=== PATIENT | female | born 2005 | race Caucasian/White ===

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

== ENCOUNTER 2025-07-09 13:42 | Outpatient (CLI) | payer OTHER, SELFPAY | END 2025-07-09 13:43 | disposition home or self-care (01) | LOC: NFLDREF 07-27 08:53 | PROVIDERS: Visit Provider Physician Assistant | DX: N39.0 Urinary tract infection, site not specified (principal) | CPT/HCPCS: 87086 ==

== ENCOUNTER 2025-07-26 02:05 | Emergency (ER) | payer OTHER, SELFPAY ==
[2025-07-26] VITALS (12 sets, daily range): BP systolic 96–148; BP diastolic 59–72; PULSE 95–126; RESP 16; TEMP 37.8–38; O2SAT 96–99; BMI 15.9
[2025-07-26 02:18] LABS: Appearance Urine Clear (Clear)
--- NOTE | 2025-07-26 02:18 | ED.FEMALEGU ---
HPI - Female Genitourinary General Time Seen by Provider: 02:18 Date Seen: 07/26/25 Chief complaint: Urogenital Problems, Female Stated complaint: fever, kidney infection Time Seen by Provider: 07/26/25 02:15 Source: patient Mode of arrival: ambulatory History of Present Illness HPI Narrative: Ирина is a 20 yo female who presents to the emergency department for evaluation of fever. Patient reports that she has been having urinary tract in symptoms for the past 1 month and has been multiple rounds of antibiotics. Patient states that she initially developed some urinary tract symptoms approximately 1 month ago and at that point she took 2 days of fosfomycin she had at home. Patient states that symptoms improved however about a week later symptoms return. At that point she was treated with a 7 day course of Augmentin. Then later took a 5 day course of Macrobid, a 7 day course of Keflex, and most recently is on Bactrim. Patient reports she has taken 7 days of Bactrim and has 3 days left. Patient reports that tonight approximately 1 hour prior to arrival she developed a rash on her body. Patient also complains of generalized fatigue, fever, chills, as well as some rhinorrhea, cough. Reports improvement of her urinary symptoms however still on occasion does have some kidney discomfort along with some nausea. Patient last took Tylenol around 2:00 p.m. yesterday. Patient also reports concern that she may have a yeast infection given all of her antibiotics. Patient denies any other abdominal pain reports. Related Data Home Medications ?Medication ?Instructions ?Recorded ?Confirmed drospirenone 3 mg-ethinyl 1 tab PO QDAY 07/09/25 07/26/25 estradiol 0.02 mg tablet (BENNETT (28)) Previous Rx's ?Medication ?Instructions ?Recorded cefpodoxime 200 mg tablet 200 mg PO BID 9 days #18 tabs 07/26/25 Allergies Allergy/AdvReac Type Severity Reaction Status Date / Time No Known Drug Allergies Allergy Verified 07/26/25 02:16 Review of Systems Narrative: Past medical history, past surgical history, medications, allergies, family history, and social history were reviewed with the patient. No additional pertinent items. A medically appropriate review of systems was performed with pertinent positives and negatives noted in HPI, all other systems negative. [facility] PFS Social History Smoking Status: Never smoker How often do you have a drink containing alcohol: never AUDIT-C Alcohol total score: 0 Non-prescribed substance use: denies use Exam Narrative: Exam Narrative: General: Febrile 100.4 no acute distress HEENT: Normocephalic, atraumatic, conjunctiva normal. MMM Neck: non-tender, supple Cardio: regular rate. regular rhythm Resp: Normal work of breathing, no respiratory distress, lungs clear bilaterally, no wheezing, rhonchi, rales Chest/Back: no visual signs of trauma, no midline tenderness, no CVA tenderness Abdomen: soft, non distension, no tenderness, no peritoneal signs Neuro: alert and fully oriented. CN II-XII grossly intact. Grossly normal strength and sensation in all extremities. MSK: no deformities. Normal range of motion Integumentary/Skin: Diffuse maculopapular rash to chest wall, abdomen, extremities Psych: normal affect, normal behavior Const: Vital Signs, click to edit/add: Vital Signs - 24 hr 07/26/25 02:13 07/26/25 02:45 07/26/25 02:46 Temperature 100.4 F H 100.4 F H Pulse Rate 121 H Pulse Rate [Pulse Oximeter] 126 H Respiratory Rate 16 Blood Pressure Blood Pressure [Ri ght Upper Arm] 148/72 H Pulse Oximetry 98 99 Oxygen Delivery Me thod Room Air 07/26/25 03:00 07/26/25 03:07 07/26/25 03:15 Temperature Pulse Rate 106 H 108 H Pulse Rate [Pulse Oximeter] 107 H Respiratory Rate Blood Pressure Blood Pressure [Ri ght Upper Arm] Pulse Oximetry 99 98 Oxygen Delivery Me thod 07/26/25 03:30 07/26/25 03:45 Temperature 100.1 F H Pulse Rate 100 101 H Pulse Rate [Pulse Oximeter] Respiratory Rate 16 Blood Pressure 96/59 L Blood Pressure [Ri ght Upper Arm] Pulse Oximetry 97 96 Oxygen Delivery Me thod Course Vital Signs Vital signs: Initial Vital Signs Temperature 100.4 F H 07/26/25 02:13 Temperature Source Temporal Artery Scan 07/26/25 02:13 Pulse Rate 126 H 07/26/25 02:13 Respiratory Rate 16 07/26/25 02:13 Blood Pressure 148/72 H 07/26/25 02:13 Blood Pressure Mean 97 07/26/25 02:13 Blood Pressure Position Sitting 07/26/25 02:13 Pulse Oximetry 98 07/26/25 02:13 Oxygen Delivery Method Room Air 07/26/25 02:13 Vital Signs Temperature 100.4 F H 07/26/25 02:13 Pulse Rate 126 H 07/26/25 02:13 Respiratory Rate 16 07/26/25 02:13 Blood Pressure 148/72 H 07/26/25 02:13 Pulse Oximetry 98 07/26/25 02:13 Oxygen Delivery Method Room Air 07/26/25 02:13 Temperature 100.1 F H 07/26/25 03:45 Pulse Rate 101 H 07/26/25 03:45 Respiratory Rate 16 07/26/25 03:45 Blood Pressure 96/59 L 07/26/25 03:45 Pulse Oximetry 96 07/26/25 03:45 Oxygen Delivery Method Room Air 07/26/25 02:13 Medications Administered Medications: Generic Name Dose Route Start Last Admin Trade Name Freq PRN Reason Stop Dose Admin Cetirizine HCl 10 mg 07/26/25 02:37 07/26/25 02:45 Cetirizine Hcl 10 Mg Tablet PO 07/26/25 02:38 10 mg ONCE ONE Administration Diphenhydramine HCl 50 mg 07/26/25 02:37 07/26/25 02:44 Diphenhydramine 25 Mg Capsule PO 07/26/25 02:38 50 mg ONCE ONE Administration Sodium Chloride 1,000 mls @ 1,000 mls/hr 07/26/25 02:45 07/26/25 03:49 0.9 % Sodium Chloride 1000 Ml IV 07/26/25 03:44 Infused .Q1H BREA Infusion Ibuprofen 600 mg 07/26/25 02:34 07/26/25 02:45 Ibuprofen 200 Mg Tablet PO 07/26/25 02:35 600 mg ONCE ONE Administration MDM - Female Genitourinary MDM Narrative Medical decision making narrative: Ирина is a 20 yo female who presents to the emergency department for evaluation of fever. Upon arrival patient is nontoxic appearing, febrile 100.4, no distress. Patient tachycardic upon arrival with heart rate of 126, 1 pressure 148/72, oxygen 98% on room air. Examination notable for maculopapular rash on extremities, chest, abdomen. Lungs clear to auscultation bilaterally. Differential diagnosis includes but is not limited to - rash secondary to allergy versus viral exanthem versus morbilliform drug reaction versus less likely Benjamin Desean syndrome/Toxic Epidermal Necrolysis. Fever seconday to UTI vs pyelonephritis versus viral illness versus morbilliform drug reaction versus COVID versus influenza among others. Upon arrival urinalysis, comprehensive labs, viral testing performed. Patient was treated with ibuprofen, 1 L IV fluid bolus, zyrtec, Benadryl. Urinalysis significantly improved when compared to prior urine on 07/09/2025. Negative for nitrates, negative for leukocyte esterase, 0-2 white blood cells, few bacteria. Per chart review patient's urinalysis on 07/09/2025 grew out positive for E coli and Klebsiella pneumoniae which were both susceptible to Bactrim. Per chart review and patient was seen at urgent care in 07/09/2025 she was diagnosed with urinary tract infection and was started on Macrobid 100 mg p.o. b.i.d. for 5 days. Patient was called a few days later and placed additionally on cephalexin due to resistant patterns. (urine culture grew out both E coli and Klebsiella). Patient return to urgent care on 07/17/2025 at that time concern for pyelonephritis so she was treated with 1 g of IM Rocephin followed by 10 day course of Bactrim. Patient has taken 7 days of Bactrim. Comprehensive labs remarkable for white blood cell count of 3.2, hemoglobin 12.4, sodium slightly low at 130, no other acute metabolic electrolyte abnormality, normal creatinine, normal lactic acid of 1.1, no transaminitis, negative test. On re-evaluation patient resting comfortably, no distress. Patient nontoxic appearing. Influenza/COVID/RSV negative, vaginitis panel negative. I did consider and discussed with patient and significant other further evaluation with CT imaging however at this time after shared decision-making patient would like to hold off on CT scan due to cost/radiation. Patient does report she is feeling better with improvement of her symptoms. Suspect likely pyelonephritis, ED workup reassuring with no significant leukocytosis, no acute kidney injury, normal lactic acid, and patient reports improvement of symptoms. I also discussed and considered hospital observation/admission given concerns for possible failure of outpatient management. Patient would prefer to discharge at this time which I think is reasonable as patient is overall nontoxic appearing and does report feeling better. 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 Discussed with patient will treat with a dose of ceftriaxone in the emergency department, will switch to cefpodoxime to cover pyelonephritis and recommend her to discontinue the Bactrim due to the rash - suspect likely allergy/drug reaction - no evidence of mucosal involvement/ulceration/blistering). Patient and significant other both agree with discharge with strict return precautions if persistent high fever, nausea/vomiting, flank/abdominal pain, worsening rash with any mucosal involvement/ulcerations/blistering, or any worsening symptoms. Patient and significant other understand agrees the plan. Medical Records Attestation: I reviewed the patient's medical records. Lab Data Attestation: I reviewed the patient's lab results. Labs: Lab Results 07/26/25 07/26/25 07/26/25 Range/Units 02:07 02:35 02:37 WBC (4.50-11.00) K/uL RBC (4.00-5.20) m/uL Hgb (12.0-16.0) gm/dL Hct (33.0-51.0) % MCV (80-100) fL MCH (26-34) pg MCHC (32-36) gm/dL RDW Coeff of Pio (11.5-15.5) % Plt Count (140-440) K/uL Neut % (Auto) (42.0-72.0) % Lymph % (Auto) (20-44) % [place] % (Auto) (0.0-11.0) % Eos % (Auto) (0.0-7.0) % Baso % (Auto) (0.0-3.0) % Neut # (Auto) (1.7-7.0) K/uL Lymph # (Auto) (0.90-2.90) K/uL [place] # (Auto) (0.00-0.90) K/UL Eos # (Auto) (0.00-0.50) K/uL Baso # (Auto) (0.00-0.30) K/uL Abs Immat Gran (auto) (0.00-0.30) K/uL Imm/Tot Granulo (auto) % Sodium (135-149) mmol/L Potassium (3.6-5.1) mmol/L Chloride (96-114) mmol/L Carbon Dioxide (20-32) mmol/L Anion Gap (7-15) mEq/L BUN (5-24) mg/dL Creatinine (0.5-1.5) mg/dL Estimated Creat Clear Estimated GFR ml/min Glucose (60-115) mg/dL Lactate (0.5-1.9) mmol/L Calcium (8.4-10.6) mg/dL Total Bilirubin (0.1-1.5) mg/dL AST (12-35) U/L ALT (4-35) U/L Alkaline Phosphatase (40-150) U/L Total Protein (6.0-8.3) g/dL Albumin (3.3-5.0) g/dL HCG, Qual (Negative) Urine Color Yellow (Yellow) Urine Appearance Clear (Clear) Urine pH 6.0 (5.0-8.5) Ur Specific [place] 1.025 (1.000-1.030) Urine Protein Negative (Negative) Urine Glucose (UA) Negative (Negative) Urine Ketones Negative (Negative) Urine Blood Trace-intact A (Negative) Urine Nitrite Negative (Negative) Urine Bilirubin Negative (Negative) Urine Urobilinogen 1.0 (0.2-1.0) Ur Leukocyte Esterase Negative (Negative) Urine RBC 0-2 (0-2) Urine WBC 0-2 (0-5) Ur Squamous Epith Cells Few (None-Few) Urine Bacteria Few A (None) Vaginal Bacterial Vaginosis Negative (Negative) Vaginal Mary species NOT DETECTED (No Detected) Vag C. glabrata/krusei NOT DETECTED (No Detected) Vag T. vaginalis NOT DETECTED (No Detected) SARS-CoV-2 (PCR) Negative SARS-CoV-2 (Negative) Influenza Type A (PCR) Negative PCR FLU A (Negative) Influenza Type B (PCR) Negative PCR FLU B (Negative) 07/26/25 Range/Units 02:41 WBC 3.20 L (4.50-11.00) K/uL RBC 4.38 (4.00-5.20) m/uL Hgb 12.4 (12.0-16.0) gm/dL Hct 37.6 (33.0-51.0) % MCV 86 (80-100) fL MCH 28 (26-34) pg MCHC 33 (32-36) gm/dL RDW Coeff of Pio 11.6 (11.5-15.5) % Plt Count 138 L (140-440) K/uL Neut % (Auto) 63.4 (42.0-72.0) % Lymph % (Auto) 23.8 (20-44) % [place] % (Auto) 8.4 (0.0-11.0) % Eos % (Auto) 3.8 (0.0-7.0) % Baso % (Auto) 0.0 (0.0-3.0) % Neut # (Auto) 2.00 (1.7-7.0) K/uL Lymph # (Auto) 0.80 L (0.90-2.90) K/uL [place] # (Auto) 0.30 (0.00-0.90) K/UL Eos # (Auto) 0.10 (0.00-0.50) K/uL Baso # (Auto) 0.00 (0.00-0.30) K/uL Abs Immat Gran (auto) 0.00 (0.00-0.30) K/uL Imm/Tot Granulo (auto) 0.6 % Sodium 130 L (135-149) mmol/L Potassium 4.0 (3.6-5.1) mmol/L Chloride 97 (96-114) mmol/L Carbon Dioxide 24 (20-32) mmol/L Anion Gap 9 (7-15) mEq/L BUN 12 (5-24) mg/dL Creatinine 0.7 (0.5-1.5) mg/dL Estimated Creat Clear 74.88 Estimated GFR 127 ml/min Glucose 100 (60-115) mg/dL Lactate 1.1 (0.5-1.9) mmol/L Calcium 8.5 (8.4-10.6) mg/dL Total Bilirubin 0.3 (0.1-1.5) mg/dL AST 31 (12-35) U/L ALT 17 (4-35) U/L Alkaline Phosphatase 41 (40-150) U/L Total Protein 6.7 (6.0-8.3) g/dL Albumin 4.1 (3.3-5.0) g/dL HCG, Qual Negative (Negative) Urine Color (Yellow) Urine Appearance (Clear) Urine pH (5.0-8.5) Ur Specific [place] (1.000-1.030) Urine Protein (Negative) Urine Glucose (UA) (Negative) Urine Ketones (Negative) Urine Blood (Negative) Urine Nitrite (Negative) Urine Bilirubin (Negative) Urine Urobilinogen (0.2-1.0) Ur Leukocyte Esterase (Negative) Urine RBC (0-2) Urine WBC (0-5) Ur Squamous Epith Cells (None-Few) Urine Bacteria (None) Vaginal Bacterial Vaginosis (Negative) Vaginal Mary species (No Detected) Vag C. glabrata/krusei (No Detected) Vag T. vaginalis (No Detected) SARS-CoV-2 (PCR) (Negative) Influenza Type A (PCR) (Negative) Influenza Type B (PCR) (Negative) Discharge Plan Discharge Clinical Impression: Fever, Rash Patient Disposition: Home, Self-Care Condition: Improved Additional Instructions: Please follow-up with your primary care provider or in the [facility] in the next 2-3 days for further evaluation and follow-up. Please call Sunday to schedule an appointment. You may follow-up and establish care at our clinic as well. Please call [phone] to schedule an appointment. Please stop taking your prior antibiotics immediately (Bactrim - Sulfamethoxazole Trimethoprim). Please start taking your new antibiotics twice daily as directed. Please alternate taking Tylenol 1000 mg and ibuprofen 600 mg every 6 hours as needed for fever, body aches. Please rest, drink plenty of fluids. Please return immediately to the emergency department if you develop persistent high fever, vomiting, severe abdominal/back pain, worsening of your rash with blisters, mucosal involvement (ulceration, peeling of skin, etc), or any worsening symptoms. It was a pleasure taking care of you today. We hope you feel better and have a great weekend =) Prescriptions: New cefpodoxime 200 mg tablet 200 mg PO BID 9 Days Qty: 18 0RF Rx Instructions: must administer with a meal/food Discontinued sulfamethoxazole-trimethoprim 800-160 mg tablet 1 tab PO BID Qty: 20 0RF No Action drospirenone-ethinyl estradiol [BENNETT (28)] 3-0.02 mg tablet 1 tab PO QDAY Follow Up/Referrals: Provider,Not a Local [Primary Care Provider, Family Practice] Stand Alone Forms: [employer] Info Instructions
[2025-07-26] MEDS: CETIRIZINE HCL 10 MG TABLET PO (02:45)
[2025-07-26] MEDS: IBUPROFEN 200 MG TABLET 600 MG PO (02:45)
[2025-07-26 02:48] LABS: Hematocrit* 37.6 % (33.0-51.0); Hemoglobin* 12.4 gm/dL (12.0-16.0); Immature Granulocytes Pct Auto 0.6 %; Lactate* 1.1 mmol/L (0.5-1.9); Mean Corpuscular HGB Conc 33 gm/dL (32-36); Mean Corpuscular Hemoglobin 28 pg (26-34); Mean Corpuscular Volume 86 fL (80-100); RDW Coefficient of Variation % 11.6 % (11.5-15.5); Red Blood Count* 4.38 m/uL (4.00-5.20); White Blood Count* 3.20 K/uL (4.50-11.00)
[2025-07-26 02:50] LABS: Immature Granulocytes Abs Auto 0.00 K/uL (0.00-0.30); Lymphocytes Absolute Auto 0.80 K/uL (0.90-2.90); Slide Review Reflex No
[2025-07-26 03:04] LABS: Albumin* 4.1 g/dL (3.3-5.0)
[2025-07-26 03:05] LABS: HCG Qualitative Serum* Negative (Negative)
[2025-07-26 03:07] LABS: Alanine Aminotransferase* 17 U/L (4-35); Alkaline Phosphatase* 41 U/L (40-150); Aspartate Amino Transferase* 31 U/L (12-35); Bilirubin Total* 0.3 mg/dL (0.1-1.5); Blood Urea Nitrogen* 12 mg/dL (5-24); Carbon Dioxide* 24 mmol/L (20-32); Creatinine* 0.7 mg/dL (0.5-1.5); Est. Creatinine Clearance* 74.88; Estimated Glomerular Filt Rate 127 ml/min; Total Protein* 6.7 g/dL (6.0-8.3)
[2025-07-26 03:08] LABS: Calcium* 8.5 mg/dL (8.4-10.6); Glucose* 100 mg/dL (60-115)
[2025-07-26 03:13] LABS: Anion Gap 9 mEq/L (7-15); Chloride* 97 mmol/L (96-114); Potassium* 4.0 mmol/L (3.6-5.1); Sodium* 130 mmol/L (135-149)
[2025-07-26 03:19] LABS: PCR FLU A Negative PCR FLU A (Negative); PCR FLU B Negative PCR FLU B (Negative); SARS PCR* Negative SARS-CoV-2 (Negative)
[2025-07-26 03:44] LABS: Bacterial Vaginosis* Negative (Negative); Candida glab/krus NOT DETECTED (No Detected)
[2025-07-26] MEDS: cefTRIAXone 1 GM in 0.9 % SODIUM CHLORIDE Mini-bag 100 ML IVPB (04:00)
[2025-07-26] MEDS: ACETAMINOPHEN 500 MG TABLET 1000 MG PO (04:28)
== END 2025-07-26 04:36 | disposition home or self-care (01) ==
PROVIDERS: Emergency Provider Emergency Medicine
DX: R50.9 Fever, unspecified (principal); R21 Rash and other nonspecific skin eruption; R00.0 Tachycardia, unspecified; Z79.2 Long term (current) use of antibiotics
CPT/HCPCS: 36415; 80053; 81001; 81513; 83605; 84703; 85025; 87086; 87481; 87636; 87661; 96374; 99283; 99284; 99285; A9270; J0696; J2405; J7030

== ENCOUNTER 2025-07-26 09:31 | Emergency (ER) | payer OTHER, SELFPAY ==
[2025-07-26 09:34] VITALS: BP 101/70; PULSE 105; RESP 18; TEMP 37.5; O2SAT 97; BMI 17.4
[2025-07-26 10:31] LABS: Hematocrit* 36.3 % (33.0-51.0); Hemoglobin* 11.9 gm/dL (12.0-16.0); Immature Granulocytes Abs Auto 0.00 K/uL (0.00-0.30); Immature Granulocytes Pct Auto 0.0 %; Lymphocytes Absolute Auto 0.90 K/uL (0.90-2.90); Mean Corpuscular HGB Conc 33 gm/dL (32-36); Mean Corpuscular Hemoglobin 28 pg (26-34); Mean Corpuscular Volume 86 fL (80-100); RDW Coefficient of Variation % 11.6 % (11.5-15.5); Red Blood Count* 4.22 m/uL (4.00-5.20); White Blood Count* 2.56 K/uL (4.50-11.00)
[2025-07-26 10:34] LABS: Slide Review Reflex Yes
[2025-07-26 10:44] LABS: Albumin* 3.5 g/dL (3.3-5.0); Chloride* 101 mmol/L (96-114); Potassium* 3.6 mmol/L (3.6-5.1); Sodium* 132 mmol/L (135-149)
[2025-07-26 10:46] LABS: Blood Urea Nitrogen* 8 mg/dL (5-24); Creatinine* 0.6 mg/dL (0.5-1.5); Est. Creatinine Clearance* 95.10; Estimated Glomerular Filt Rate 132 ml/min
[2025-07-26 10:47] LABS: Alanine Aminotransferase* 16 U/L (4-35); Alkaline Phosphatase* 37 U/L (40-150); Anion Gap 8 mEq/L (7-15); Aspartate Amino Transferase* 29 U/L (12-35); Bilirubin Total* 0.3 mg/dL (0.1-1.5); Calcium* 7.6 mg/dL (8.4-10.6); Carbon Dioxide* 23 mmol/L (20-32); Glucose* 93 mg/dL (60-115); Total Protein* 5.9 g/dL (6.0-8.3)
[2025-07-26 11:06] LABS: Slide Review Acceptable Review (Acceptable)
[2025-07-26] MEDS: ONDANSETRON 2 MG/ML inj 4 MG IVP (11:14)
--- NOTE | 2025-07-26 11:22 | ED.GENADULT ---
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 She has had multiple visits recently initially related to UTI which grew out E coli and Klebsiella, a few different antibiotic changes most recently to Bactrim about a week ago. She has been taking that until yesterday at 4:00 p.m.. She developed a rash on her torso and abdomen as well as the low-grade fever, she says she thinks she has had a fever for couple of days. She has not had any oral lesions, has not had any vomiting but she has felt kind of nauseated and has not been eating or drinking very much. She was seen here last night and told to discontinue the Bactrim, had a number of labs which were reassuring. There was some discussion about imaging and/or admission but given that she was feeling well, decision was made to discharge home. She says she was told to come back if she was worse. She says that the rash has now spread to her whole body and she feels like her face is little swollen. She does not have any other new symptoms although she thinks she has continued to have some fevers at home. Related Data Home Medications ?Medication ?Instructions ?Recorded ?Confirmed drospirenone 3 mg-ethinyl 1 tab PO QDAY 07/09/25 07/26/25 estradiol 0.02 mg tablet (BENNETT (28)) sulfamethoxazole 800 1 tab PO BID 07/26/25 07/26/25 mg-trimethoprim 160 mg tablet Previous Rx's ?Medication ?Instructions ?Recorded cefpodoxime 200 mg tablet 200 mg PO BID 9 days #18 tabs 07/26/25 Allergies Allergy/AdvReac Type Severity Reaction Status Date / Time sulfamethoxazole (From Allergy Severe Verified 07/26/25 11:51 Bactrim) trimethoprim (From Bactrim) Allergy Severe Verified 07/26/25 11:51 Review of Systems Status of ROS: Reports: 6 or more systems reviewed and unremarkable except as noted in History and below PFSH PFS Social History Smoking Status: Never smoker How often do you have a drink containing alcohol: never AUDIT-C Alcohol total score: 0 Non-prescribed substance use: denies use Exam Narrative: Exam Narrative: Vital signs reviewed In general, alert, nontoxic young woman. Breathing easily. Head: Normocephalic, atraumatic. Eyes: Sclera clear. Pupils equal and reactive. ENT: Mucous membranes moist. No intraoral lesions. Neck: Supple without adenopathy. Heart: Mildly tachycardic, regular. Lungs: Clear. No increased work of breathing, crackles or wheezes. Abdomen: Soft, nontender to palpation. No organomegaly. Extremities: Well perfused, pulses intact. No significant edema. Neurologic: Alert, conversant. Speech fluent, face symmetric. Moves all extremities equally. Skin: Warm, dry well perfused. She has a morbilliform rash fairly diffusely. No blistering or hives. Affect: Normal. Const: Vital Signs, click to edit/add: Vital Signs - 24 hr 07/26/25 09:34 Temperature 99.5 F Pulse Rate [Pulse Oximeter] 105 H Respiratory Rate 18 Blood Pressure [Ri ght Upper Arm] 101/70 Pulse Oximetry 97 Oxygen Delivery Me thod Room Air Course Course ED Course: We placed an IV here, gave her L of fluids and some Zofran. She is feeling improved. I rechecked blood counts, she has a slightly depressed white blood cell count of 2.5, similar to last night. Hemoglobin is 11.9, slightly down from 12.4. Metabolic panel is normal, creatinine is 0.6, LFTs show a normal total bilirubin, normal AST normal ALT, alk-phos slightly low. Reviewed all this with her. Discussed that at this time I do not see evidence of severe reaction assess stating hospitalization. Reviewed that the rash may continue to spread, as long as it is not changing as long she is not getting blisters or oral lesions, having high fevers or shaking chills, vomiting or other worsening, would expect that this will improve over the next few days. I prescribed some Zofran for home use if needed. Added Bactrim as an allergy to her chart, and advised that she should not take any sulfa based antibiotics in the future. Vital Signs Vital signs: Initial Vital Signs Respiratory Effort Normal, Spontaneous, Non-Labored 07/26/25 09:32 Respiratory Depth Normal 10/26/25 09:32 Respiratory Pattern Normal 07/26/25 09:32 Vital Signs Temperature 99.5 F 07/26/25 09:34 Pulse Rate 105 H 07/26/25 09:34 Respiratory Rate 18 07/26/25 09:34 Blood Pressure 101/70 07/26/25 09:34 Pulse Oximetry 97 07/26/25 09:34 Oxygen Delivery Method Room Air 07/26/25 09:34 Temperature 99.5 F 07/26/25 09:34 Pulse Rate 105 H 07/26/25 09:34 Respiratory Rate 18 07/26/25 09:34 Blood Pressure 101/70 07/26/25 09:34 Pulse Oximetry 97 07/26/25 09:34 Oxygen Delivery Method Room Air 07/26/25 09:34 Medications Administered Medications: Discontinued Medications Generic Name Dose Route Start Last Admin Trade Name Freq PRN Reason Stop Dose Admin Sodium Chloride 1,000 mls @ 1,000 mls/hr 07/26/25 11:00 07/26/25 11:14 0.9 % Sodium Chloride 1000 Ml IV 07/26/25 11:59 1,000 mls/hr .Q1H BREA Administration Ondansetron HCl 4 mg 07/26/25 10:57 07/26/25 11:14 Ondansetron 2 Mg/Ml Inj IVP 07/26/25 10:58 4 mg ONCE ONE Administration Medical Decision Making Lab Data Labs: Lab Results 07/26/25 Range/Units 10: WBC 2.56 L (4.50-11.00) K/uL RBC 4.22 (4.00-5.20) m/uL Hgb 11.9 L (12.0-16.0) gm/dL Hct 36.3 (33.0-51.0) % MCV 86 (80-100) fL MCH 28 (26-34) pg MCHC 33 (32-36) gm/dL RDW Coeff of Pio 11.6 (11.5-15.5) % Plt Count 139 L (140-440) K/uL Neut % (Auto) 52.7 (42.0-72.0) % Lymph % (Auto) 35.2 (20-44) % [place] % (Auto) 7.0 (0.0-11.0) % Eos % (Auto) 5.1 (0.0-7.0) % Baso % (Auto) 0.0 (0.0-3.0) % Neut # (Auto) 1.30 L (1.7-7.0) K/uL Lymph # (Auto) 0.90 (0.90-2.90) K/uL [place] # (Auto) 0.20 (0.00-0.90) K/UL Eos # (Auto) 0.10 (0.00-0.50) K/uL Baso # (Auto) 0.00 (0.00-0.30) K/uL Abs Immat Gran (auto) 0.00 (0.00-0.30) K/uL Imm/Tot Granulo (auto) 0.0 % Diff Slide Review Acceptable Review (Acceptable) Sodium 132 L (135-149) mmol/L Potassium 3.6 (3.6-5.1) mmol/L Chloride 101 (96-114) mmol/L Carbon Dioxide 23 (20-32) mmol/L Anion Gap 8 (7-15) mEq/L BUN 8 (5-24) mg/dL Creatinine 0.6 (0.5-1.5) mg/dL Estimated Creat Clear 95.10 Estimated GFR 132 ml/min Glucose 93 (60-115) mg/dL Calcium 7.6 L (8.4-10.6) mg/dL Total Bilirubin 0.3 (0.1-1.5) mg/dL AST 29 (12-35) U/L ALT 16 (4-35) U/L Alkaline Phosphatase 37 L (40-150) U/L Total Protein 5.9 L (6.0-8.3) g/dL Albumin 3.5 (3.3-5.0) g/dL Discharge Plan Discharge Clinical Impression: Adverse reaction to drug Patient Disposition: Home, Self-Care Condition: Stable Instructions: Antibiotic Medication Allergy (ED) Additional Instructions: Your labs remained normal, your kidney and liver function are good. Discussed, your symptoms are almost certainly related to an adverse reaction to the Bactrim. I have added Bactrim/sulfa to your allergy list, you should not take any medicines in this family of antibiotics in the future. I suspect that your symptoms will gradually resolve over the next few days. There is nothing you can take that will really make this go faster. I did give you some additional Zofran in case you need it for nausea. As discussed last night, you should come back and see us if you are feeling significantly worse, have high fevers, shaking chills, vomiting, yellowing of your skin, blisters, mouth sores. Prescriptions: No Action drospirenone-ethinyl estradiol [BENNETT (28)] 3-0.02 mg tablet 1 tab PO QDAY cefpodoxime 200 mg tablet 200 mg PO BID 9 Days Qty: 18 0RF Rx Instructions: must administer with a meal/food sulfamethoxazole-trimethoprim 800-160 mg tablet 1 tab PO BID Follow Up/Referrals: Provider,Not a Local [Primary Care Provider, Family Practice] Stand Alone Forms: [email or web address] Info Instructions
[2025-07-26 12:08] VITALS: BP 95/51; PULSE 80; RESP 20; O2SAT 96
== END 2025-07-26 12:10 | disposition home or self-care (01) ==
PROVIDERS: Emergency Provider Emergency Medicine
DX: L27.0 Generalized skin eruption due to drugs and medicaments taken internally (principal); T36.8X5A Adverse effect of other systemic antibiotics, initial encounter
CPT/HCPCS: 36415; 80053; 85025; 96374; 99284; J2405; J7030